=== PATIENT | female | born 1945 | race Caucasian/White ===

== ENCOUNTER 2017-04-25 11:52 | Day surgery (SDC) | payer BC, OTHER ==
[2017-04-23 11:32] VITALS: BMI 23.7
[2017-04-25] MEDS ORDERED: MIDAZOLAM HCL 2 MG/2 ML SINGLE DOSE VIAL ONE ×2 (13:01→14:10)
[2017-04-25] MEDS ORDERED: ROPIVACAINE HCL 0.5% 30ML VIAL ONE ×2 (13:01→13:39)
[2017-04-25] MEDS ORDERED: DEXAMETHASONE SOD PHOSPHATE 4 MG/1 ML VIAL ONE (13:14)
[2017-04-25] MEDS ORDERED: ONDANSETRON 4 MG/2 ML VIAL IVPUSH PRN (14:58)
[2017-04-25] MEDS ORDERED: oxyCODONE HCL 5 MG TABLET PO PRN ×2 (14:58)
[2017-04-25] MEDS ORDERED: LACTATED RINGERS SOLUTION 1,000 ML IV SCH (15:00)
[2017-04-25 16:23] VITALS: TEMP 97.7
[2017-04-25] MEDS ORDERED: ONDANSETRON 4 MG/2 ML VIAL ONE (16:28)
[2017-04-25 17:49] VITALS: BP 144/87; PULSE 72
--- NOTE | 2017-04-27 08:45 | OP ---
DATE OF OPERATION: 04/25/2017 PREOPERATIVE DIAGNOSIS: Left patella fracture. POSTOPERATIVE DIAGNOSIS: Left patella fracture. PROCEDURE: Left patella open reduction and internal fixation. SURGEON: Manish Jj MD AUDITING CONTROL CLERK: CHEY Means, whose skillful assistance was necessary for the safe and timely performance of this procedure. Ms. Wu was able to provide assistance with limb positioning, retraction, fracture reduction, as well as the fixation of the fracture and insertion of orthopedic hardware. ANESTHESIA TYPE: Spinal plus regional. POSTOPERATIVE CONDITION: Stable. TOURNIQUET TIME: 1 hour and 13 minutes. IMPLANTS: Arthrex 4.5-mm cannulated screws x2. INDICATIONS: This is a pleasant woman who had suffered a patella fracture. Initially, her patella fracture was nondisplaced and transverse. However, between the time when she went to the emergency room and the office, followup radiographs demonstrated there was interval displacement. There was now a 5-mm gap in the articular surface. Treatment options, including nonoperative management versus operative management, were discussed. It was believed that nonoperative care would result in nonunion. There would be a significant stepoff in the articular surface which may lead to anterior knee pain and arthrosis. Alternatively, I recommended operative management. This would consist of open reduction and internal fixation utilizing screws. This would allow for a more anatomic reduction and less stress on the patellofemoral joint and hopefully a better outcome with less pain and better mobility. Surgical risks were discussed in detail, including bleeding, infection, neurovascular injury, need for further surgery, postoperative pain and stiffness, nonunion, malunion, hardware failure or cutout. We discussed the need for physical therapy afterwards. We reviewed medical risks such as heart attack, stroke, DVT, PE, and . I addressed all the patient's questions. She voiced understanding and elected to proceed. PROCEDURE: Patient was brought to the operating room where spinal anesthesia was administered. She had previously been given a regional block in the preoperative holding area. The left lower extremity was then prepped and draped in the usual sterile fashion. A preoperative dose of antibiotics was given and the usual timeout procedure was performed. At this point, the incision was planned out anteriorly over the patella. This was carried down through skin through subcutaneous tissue. Blunt spreading was used to expose the fascia over the patella. A [place] was now inserted into the fracture site which was identified and used to open up the fracture site further out to remove any loose debris inside. A curet was now passed in the fracture site to remove any debris. The fracture was now reduced utilizing a pointed reduction clamp. Fracture reduction was verified both visually and fluoroscopically. The fracture was now fixated with 2 K-wires from the cannulated screw set. Again, K-wire placement was confirmed fluoroscopically. The screws were then measured, drilled in the neocortex, and then tapped and then inserted. The more medial screw being poor purchase and therefore this was removed. A 3rd K-wire was now inserted and a better location was chosen where the screw was again inserted in the same technique, obtaining much better purchase. The clamp was now removed and fracture reduction and hardware placement were examined. Both were satisfactory both visually and fluoroscopically. The FiberTape was now passed in a figure-of-8 fashion through both screws. This was then securely tied to perform a tension band-type construct. The fascia was now closed using 0 Vicryl. The subcutaneous tissue was approximated using 2-0 Vicryl. The skin was closed using 3-0 nylon. Tourniquet was let down after 73 minutes. Sterile dressings were placed. Patient was placed into a well-padded cylinder cast. She was transferred to the recovery room in stable condition. MANISH JJ M.D. BLAYNE/[id number]
== END 2017-04-25 17:35 | disposition home or self-care (01) ==
LOC: FASU 11:52
PROVIDERS: ATTEND Orthopaedic Surgery Sports Medicine
PROC: 0QSF04Z Reposition Left Patella with Internal Fixation Device, Open Approach (ICD-10-PCS; principal; 2017-04-25 14:17)
DX: S82.042A Displaced comminuted fracture of left patella, initial encounter for closed fracture (principal); X58.XXXA Exposure to other specified factors, initial encounter; Y93.9 Activity, unspecified; Y92.9 Unspecified place or not applicable
CPT/HCPCS: 73560-TC-LT; 76000-TC; 94760